=== PATIENT | female | born 1955 ===

== ENCOUNTER 2024-09-15 05:41 | Day surgery (SDC) | payer OTHER ==
[~2024-09-15 05:41] MED LIST: COZAAR100 MG PO; NORVASC5 MG PO
[2024-09-15] MEDS ORDERED: IBU600 MG PO (09:15)
[2024-09-15] MEDS ORDERED: POVIDONE-IODINE 118 ML BOTT TOP ONE (10:30)
[2024-09-15] MEDS ORDERED: CHLORHEXIDINE GLUCONATE 120 ML BOTTLE TOP ONE (10:30)
== END 2024-09-15 14:00 | disposition home or self-care (01) ==
LOC: CIR.AMB 05:41
PROVIDERS: ATTEND Obstetrics & Gynecology Gynecology
DX: N95.0 Postmenopausal bleeding (principal)